=== PATIENT | female | born 1950 | race African-American/Black ===

== ENCOUNTER 2018-05-27 06:07 | Day surgery (SDC) | payer OTHER ==
[2018-05-26 16:17] VITALS: BMI 32.8
[2018-05-27] MEDS ORDERED: ACETAMINOPHEN 325 MG TABLET (FP) PO PRN (06:31)
[2018-05-27] MEDS ORDERED: TROPICAMIDE 1% OPHTH SOLN 15 ML BOTTLE ONE (06:32)
[2018-05-27 06:39] VITALS: TEMP 97.5
[2018-05-27] MEDS: TROPICAMIDE 1% OPHTH SOLN 15 ML BOTTLE OP SCH ×3 (06:50→07:02)
[2018-05-27] MEDS: PHENYLEPHRINE 2.5% OPHTH SOLN 15 ML BOTTLE OP SCH ×3 (06:50→07:02)
[2018-05-27] MEDS: CYCLOPENTOLATE HCL 1% OPHTH SOLN 2 ML BOTTLE OP SCH ×3 (06:50→07:02)
[2018-05-27] MEDS: OFLOXACIN 0.3% OPHTHALMIC SOLUTION 5 ML BOTTLE OP SCH ×3 (06:50→07:02)
[2018-05-27] MEDS: KETOROLAC TROMETHAMINE 0.5% EYE DROP 1 DROP DROPS OP SCH ×2 (06:55→07:02)
[2018-05-27] MEDS ORDERED: CHONDROITIN SU A/HYALUR SOD 1 KIT ONE (07:09)
[2018-05-27] MEDS ORDERED: VANCOMYCIN 500 MG VIAL (RESTRICTED TO ID ONLY) ONE (07:17)
[2018-05-27] MEDS ORDERED: EPINEPHrine/PF 1 MG/1 ML (1:1,000) AMPULE ONE (07:17)
[2018-05-27] MEDS ORDERED: LIDOCAINE HCL/PF 1% SDV 5ML VIAL ONE (07:17)
[2018-05-27] MEDS ORDERED: WATER FOR INJ,STERILE 10 ML ONE (07:18)
[2018-05-27] MEDS ORDERED: POVIDONE-IODINE 5% OPHTHALMIC PREP 30 ML SOLUTION ONE (07:18)
[2018-05-27] MEDS ORDERED: TRYPAN BLUE 0.5 ML DISP.SYRIN ONE (07:18)
[2018-05-27] MEDS ORDERED: TETRACAINE 0.5% OPHTH SOLN 2 ML BOTTLE ONE (07:18)
[2018-05-27] MEDS ORDERED: MIDAZOLAM HCL 2 MG/2 ML SINGLE DOSE VIAL ONE (07:19)
[2018-05-27] MEDS ORDERED: SUCCINYLCHOLINE CHLORIDE 200 MG/10 ML VIAL ONE (07:19)
[2018-05-27] MEDS ORDERED: TETRACAINE 0.5% OPHTH SOLN 2 ML BOTTLE OD ONE (08:10)
[2018-05-27] MEDS ORDERED: POVIDONE-IODINE 5% OPHTHALMIC PREP 30 ML SOLUTION OD ONE (08:12)
[2018-05-27] MEDS ORDERED: CHONDROITIN SU A/HYALUR SOD 1 KIT IO ONE (08:22)
[2018-05-27] MEDS ORDERED: LIDOCAINE HCL 1% PRESERVATIVE FREE - 30ML VIAL IO ONE (08:22)
[2018-05-27] MEDS ORDERED: TRYPAN BLUE 0.5 ML DISP.SYRIN IO ONE (08:22)
[2018-05-27] MEDS ORDERED: BSS (NA/CA/MG/K) BALANCED SALT SOLUTION OPHTH SOLN 15 ML BOTTLE OD ONE (08:22)
[2018-05-27] MEDS ORDERED: EPINEPHrine/PF 1 MG/1 ML (1:1,000) AMPULE SQ ONE (08:29)
--- NOTE | 2018-05-27 08:53 | SPEC ---
DATE OF OPERATION: DATE OF DICTATION: 05/27/2018 PREOPERATIVE DIAGNOSIS: Cataract, right eye. POSTOPERATIVE DIAGNOSIS: Cataract, right eye. OPERATION: Phacoemulsification of right cataract, capsular staining with Trypan blue and intraocular lens implantation, lens used [id number], 22.0-diopter power, serial number [id number]. SURGEON: Glo Goodman MD ANESTHESIA: Topical, MAC. COMPLICATIONS: None. PROCEDURE: The patient was brought to the operating room and correctly identified along with the operative site as well as correct intraocular lens mendez. The patient was then prepped and draped in the usual sterile fashion including 5% Betadine solution in the conjunctival sac and an eyelid drape. An eyelid speculum was then placed into the operative eye. The eye was inspected and a poor red reflex was noted. A paracentesis port was created and 0.5 mL of intracameral preservative-free lidocaine 1% was given. Beneath an air bubble, the capsule was then stained with Trypan blue. The Trypan blue was then irrigated from the eye with balanced salt solution (BBS). Viscoelastic was injected to inflate the anterior chamber. A temporal clear corneal would was created. A continuous circular capsulorrhexis was performed. The nucleus was then hydrodissected and hydrodelineated was BSS and removed with phacoemulsification via [id number] approach. The remaining cortical material was irrigated and aspirated from the eye. Viscoelastic was injected in the anterior chamber to inflate the capsular bag. The intraocular lens was then injected into the bag. The viscoelastic was irrigated and aspirated from the eye. All wounds were tested and found to be watertight. No suture was placed. The intraocular lens was noted to be well centered and covered by the anterior capsular border. Topical vancomycin was given. The eye was patched and shielded. The patient was discharged from the operating room in stable condition. GLO GOODMAN M.D. [id number]
[2018-05-27 10:13] VITALS: BP 140/75; PULSE 67
== END 2018-05-27 10:15 | disposition home or self-care (01) ==
LOC: JASU-SURG 06:07
PROVIDERS: ATTEND Ophthalmology
PROC: 08RJ3JZ Replacement of Right Lens with Synthetic Substitute, Percutaneous Approach (ICD-10-PCS; principal; 2018-05-27 08:00)
DX: H26.9 Unspecified cataract (principal)

== ENCOUNTER 2023-03-12 09:00 | Emergency (ER) | payer OTHER ==
[2023-03-12 09:13] VITALS: BMI 33.3
[2023-03-12] MEDS ORDERED: ACETAMINOPHEN 1000 MG/100 ML BAG IVPB ONE (10:00)
[2023-03-12] MEDS ORDERED: ACETAMINOPHEN INJECTION 100 ML IVPB ONE (10:46)
[2023-03-12 10:47] LABS: BASO % 1.1 % (0-2.0); EOS % 1.3 % (0-4.5); HEMOGLOBIN 14.2 GM/dL (10.7-15.3); LYMPH % 48.1 % (8-40); MCH 30.3 pg (25.7-33.7); MCHC 32.9 g/dl (32.0-36.0); MEAN CELL VOLUME 92.1 fl (80-96); MONO % 7.1 % (3.8-10.2); NEUT % 42.4 % (42.8-82.8); PLATELET COUNT 214 10^3/uL (134-434); RBC 4.67 M/mm3 (3.60-5.2); RDW 14.7 % (11.6-15.6); WHITE BLOOD COUNT 6.7 K/mm3 (4.0-10.0)
[2023-03-12 10:55] LABS: INR 1.14 (0.83-1.09); PROTHROMBIN TIME (PATIENT) 13.2 SEC (9.7-13.0)
[2023-03-12 10:58] LABS: ACTIVATED PTT 27.3 SECONDS (25.2-36.5)
[2023-03-12 11:07] LABS: POTASSIUM 3.5 mmol/L (3.5-5.1)
[2023-03-12 11:09] LABS: CALCIUM 8.9 mg/dL (8.5-10.1)
[2023-03-12 11:10] LABS: ALBUMIN 3.2 g/dl (3.4-5.0)
[2023-03-12 11:11] LABS: BLOOD UREA NITROGEN 19.6 mg/dL (7-18)
[2023-03-12 11:13] LABS: CREATININE 0.9 mg/dL (0.55-1.3)
[2023-03-12 11:15] LABS: TOT PROT 6.8 g/dl (6.4-8.2)
[2023-03-12 11:16] LABS: BILIRUBIN,TOTAL 0.4 mg/dL (0.2-1)
[2023-03-12 14:16] VITALS: BP 123/69; PULSE 63; RESP 20; TEMP 97.7
== END 2023-03-12 14:28 | disposition home or self-care (01) ==
LOC: JER 09:00
PROC: 3E033NZ Introduction of Analgesics, Hypnotics, Sedatives into Peripheral Vein, Percutaneous Approach (ICD-10-PCS; principal; 2023-03-12)
DX: M54.2 Cervicalgia (principal); M79.602 Pain in left arm; R29.898 Other symptoms and signs involving the musculoskeletal system
CPT/HCPCS: 36415; 70450-TC; 70551-TC; 71046-TC-FY; 72125-TC; 80053; 80061; 82550; 83036; 84484; 85025; 85610; 85730; 86850; 86900; 86901; 93005; 93010; 99285-25

== ENCOUNTER 2023-04-11 21:46 | Inpatient (IN) | payer OTHER ==
[2023-04-11] MEDS ORDERED: SODIUM CHLORIDE 1,000 ML IV STA (22:25)
[2023-04-11 22:40] LABS: VENOUS O2 SATURATION 64.6 % (70-80); VENOUS PCO2 47.7 mmHg (38-52); VENOUS PH 7.424 (7.310-7.410)
[2023-04-11 22:41] LABS: BASO % 0.6 % (0-2.0); EOS % 0.6 % (0-4.5); HEMATOCRIT 49.8 % (32.4-45.2); HEMOGLOBIN 16.5 GM/dL (10.7-15.3); LYMPH % 29.5 % (8-40); MCH 30.4 pg (25.7-33.7); MCHC 33.2 g/dl (32.0-36.0); MEAN CELL VOLUME 91.4 fl (80-96); MEAN PLT VOLUME 10.3 fl (7.5-11.1); MONO % 6.3 % (3.8-10.2); PLATELET COUNT 250 10^3/uL (134-434); RBC 5.44 M/mm3 (3.60-5.2); RDW 14.3 % (11.6-15.6)
[2023-04-11] MEDS ORDERED: SODIUM CHLORIDE 500 ML IV STA (23:45)
[2023-04-12 00:01] LABS: CALCIUM 9.7 mg/dL (8.5-10.1)
[2023-04-12 00:02] LABS: ALBUMIN 3.5 g/dl (3.4-5.0); CO2 25 mmol/L (21-32)
[2023-04-12 00:04] LABS: CREATININE 1.5 mg/dL (0.55-1.3)
[2023-04-12 00:05] LABS: ANION GAP 12 mmol/L (4-13); CHLORIDE 95 mmol/L (98-107); POTASSIUM 3.9 mmol/L (3.5-5.1); SODIUM 133 mmol/L (136-145)
[2023-04-12 00:06] LABS: BILIRUBIN,TOTAL 0.5 mg/dL (0.2-1); TOT PROT 7.4 g/dl (6.4-8.2)
[2023-04-12 00:07] LABS: ALK PHOS 148 U/L (45-117)
[2023-04-12] MEDS ORDERED: INSULIN REGULAR HUMAN 100 UNITS/ML *VIAL IVPUSH ONE (00:08)
[2023-04-12 00:09] LABS: SGPT/ALT 38 U/L (13-61)
[2023-04-12 00:14] LABS: GLUCOSE,RANDOM 810 mg/dL (74-106)
[2023-04-12 00:19] LABS: SGOT/AST 18 U/L (15-37)
[2023-04-12 01:14] LABS: EPI CELLS 6 /uL (0-25.1); HYALINE CASTS 0 /uL (0-3.1); URINE APPEARANCE CLOUDY; URINE BACTERIA >9,000 /uL (0-1359); URINE BILIRUBIN NEGATIVE (NEGATIVE); URINE COLOR YELLOW; URINE GLUCOSE (UA) 3+ (NEGATIVE); URINE KETONE TRACE (NEGATIVE); URINE LEUK ESTERASE 1+ (NEGATIVE); URINE NITRITE NEGATIVE (NEGATIVE); URINE PROTEIN NEGATIVE (NEGATIVE); URINE RBC 62 /uL (0-23.9); URINE UROBILINOGEN 0.2 mg/dL (0.2-1.0); URINE WBC 1304 /uL (0-25.8)
[2023-04-12] MEDS ORDERED: INSULIN (LEVEMIR) 100 UNITS/ML UNITS SQ SCH (08:30)
[2023-04-12 08:37] LABS: HEMATOCRIT 43.8 % (32.4-45.2); HEMOGLOBIN 14.6 GM/dL (10.7-15.3); MCH 30.2 pg (25.7-33.7); MCHC 33.2 g/dl (32.0-36.0); MEAN PLT VOLUME 10.1 fl (7.5-11.1); PLATELET COUNT 214 10^3/uL (134-434); RBC 4.81 M/mm3 (3.60-5.2); RDW 14.1 % (11.6-15.6)
[2023-04-12] MEDS: INSULIN ASPART SLIDING SCALE (NOVOLOG) 1 VIAL SQ SCH ×4 (08:45→21:42)
[2023-04-12] MEDS ORDERED: INSULIN (LEVEMIR) 100 UNITS/ML UNITS SQ ONE (08:54)
[2023-04-12 08:57] LABS: POTASSIUM 3.6 mmol/L (3.5-5.1)
[2023-04-12 08:59] LABS: BLOOD UREA NITROGEN 12.2 mg/dL (7-18); CALCIUM 8.9 mg/dL (8.5-10.1)
[2023-04-12 09:00] LABS: MAGNESIUM 2.6 mg/dL (1.8-2.4)
[2023-04-12] MEDS ORDERED: amLODIPine BESYLATE 10 MG TABLET (FP) ONE (09:53)
[2023-04-12] MEDS ORDERED: ENOXAPARIN NA (PORCINE) 40 MG/0.4 ML DISP.SYRIN SQ ONE (09:53)
[2023-04-12] MEDS ORDERED: amLODIPine BESYLATE 10 MG TABLET (FP) PO SCH (10:00)
[2023-04-12] MEDS: ENOXAPARIN NA (PORCINE) 40 MG/0.4 ML DISP.SYRIN SQ SCH (10:03)
[2023-04-12] MEDS: CEFTRIAXONE 1 GM in DEXTROSE 5%-WATER - 50 ML IVPB SCH (12:56)
[2023-04-12 19:31] VITALS: BMI 28.4
[2023-04-12] MEDS: ATORVASTATIN CA 40 MG TABLET (FP) PO SCH (21:40)
[2023-04-12] MEDS: INSULIN (LEVEMIR) 100 UNITS/ML UNITS SQ SCH (21:40)
[2023-04-13 05:12] LABS: EPI CELLS 12 /uL (0-25.1); HYALINE CASTS 0 /uL (0-3.1); PH,URINE 5.5 (5.0-8.0); URINE APPEARANCE CLOUDY; URINE BACTERIA 26 /uL (0-1359); URINE BILIRUBIN NEGATIVE (NEGATIVE); URINE COLOR YELLOW; URINE GLUCOSE (UA) 3+ (NEGATIVE); URINE KETONE TRACE (NEGATIVE); URINE LEUK ESTERASE 1+ (NEGATIVE); URINE NITRITE NEGATIVE (NEGATIVE); URINE PROTEIN 1+ (NEGATIVE); URINE RBC 64 /uL (0-23.9); URINE UROBILINOGEN 0.2 mg/dL (0.2-1.0); URINE WBC 3185 /uL (0-25.8)
[2023-04-13] MEDS ORDERED: INSULIN (NOVOLOG) ASPART 100 UNITS/ML 10ML VIAL ONE ×4 (06:33→21:35)
[2023-04-13] MEDS: INSULIN (LEVEMIR) 100 UNITS/ML UNITS SQ SCH ×2 (06:48→21:37)
[2023-04-13] MEDS: INSULIN ASPART SLIDING SCALE (NOVOLOG) 1 VIAL SQ SCH ×4 (06:48→21:38)
[2023-04-13 09:30] LABS: BASO % 0.4 % (0-2.0); EOS % 1.1 % (0-4.5); HEMATOCRIT 42.4 % (32.4-45.2); HEMOGLOBIN 14.1 GM/dL (10.7-15.3); MCH 30.7 pg (25.7-33.7); MCHC 33.3 g/dl (32.0-36.0); MEAN CELL VOLUME 92.2 fl (80-96); MEAN PLT VOLUME 10.2 fl (7.5-11.1); MONO % 7.3 % (3.8-10.2); NEUT % 43.2 % (42.8-82.8); PLATELET COUNT 205 10^3/uL (134-434); RDW 14.2 % (11.6-15.6); WHITE BLOOD COUNT 5.8 K/mm3 (4.0-10.0)
[2023-04-13 09:48] LABS: POTASSIUM 3.4 mmol/L (3.5-5.1)
[2023-04-13] MEDS: CEFTRIAXONE 1 GM in DEXTROSE 5%-WATER - 50 ML IVPB SCH (09:53)
[2023-04-13] MEDS: ENOXAPARIN NA (PORCINE) 40 MG/0.4 ML DISP.SYRIN SQ SCH (09:53)
[2023-04-13] MEDS: LISINOPRIL 5 MG TABLET PO SCH (09:54)
[2023-04-13] MEDS: amLODIPine BESYLATE 5 MG TABLET (FP) PO SCH (09:54)
[2023-04-13 09:56] LABS: BLOOD UREA NITROGEN 13.7 mg/dL (7-18)
[2023-04-13 09:57] LABS: CALCIUM 8.4 mg/dL (8.5-10.1); MAGNESIUM 2.3 mg/dL (1.8-2.4)
[2023-04-13 10:01] LABS: BILIRUBIN,TOTAL 0.4 mg/dL (0.2-1)
[2023-04-13 10:14] LABS: ALBUMIN 2.7 g/dl (3.4-5.0)
[2023-04-13] MEDS: APIXABAN 5 MG TABLET PO SCH (21:39)
[2023-04-13] MEDS: CEFUROXIME AXETIL 500 MG TABLET PO SCH (21:39)
[2023-04-13] MEDS: ATORVASTATIN CA 40 MG TABLET (FP) PO SCH (21:39)
[2023-04-14] MEDS ORDERED: INSULIN (NOVOLOG) ASPART 100 UNITS/ML 10ML VIAL ONE ×2 (06:27→12:00)
[2023-04-14] MEDS: INSULIN (LEVEMIR) 100 UNITS/ML UNITS SQ SCH (06:30)
[2023-04-14] MEDS: INSULIN ASPART SLIDING SCALE (NOVOLOG) 1 VIAL SQ SCH ×2 (06:32→12:10)
[2023-04-14 08:56] LABS: EOS % 0.9 % (0-4.5); HEMATOCRIT 40.6 % (32.4-45.2); HEMOGLOBIN 13.5 GM/dL (10.7-15.3); MCH 30.4 pg (25.7-33.7); MCHC 33.2 g/dl (32.0-36.0); MEAN CELL VOLUME 91.4 fl (80-96); MEAN PLT VOLUME 9.8 fl (7.5-11.1); MONO % 4.4 % (3.8-10.2); NEUT % 61.7 % (42.8-82.8); PLATELET COUNT 195 10^3/uL (134-434); RBC 4.45 M/mm3 (3.60-5.2); RDW 14.2 % (11.6-15.6); WHITE BLOOD COUNT 5.5 K/mm3 (4.0-10.0)
[2023-04-14 09:25] LABS: POTASSIUM 3.7 mmol/L (3.5-5.1)
[2023-04-14 09:28] LABS: ALBUMIN 2.8 g/dl (3.4-5.0); BLOOD UREA NITROGEN 20.6 mg/dL (7-18); CALCIUM 8.9 mg/dL (8.5-10.1); MAGNESIUM 2.1 mg/dL (1.8-2.4)
[2023-04-14 09:32] LABS: BILIRUBIN,TOTAL 0.4 mg/dL (0.2-1)
[2023-04-14 09:33] LABS: TOT PROT 5.9 g/dl (6.4-8.2)
[2023-04-14] MEDS: APIXABAN 5 MG TABLET PO SCH (09:45)
[2023-04-14] MEDS: amLODIPine BESYLATE 5 MG TABLET (FP) PO SCH (09:45)
[2023-04-14] MEDS: CEFUROXIME AXETIL 500 MG TABLET PO SCH (09:45)
[2023-04-14] MEDS: LISINOPRIL 5 MG TABLET PO SCH (09:45)
[2023-04-14 15:43] VITALS: BP 106/67; PULSE 76; RESP 20; TEMP 98.2
== END 2023-04-14 15:15 | disposition home or self-care (01) | DRG 638 ==
LOC: JER 21:46 → JERBED 04-12 00:09 → J8W 04-12 12:42
PROVIDERS: ADMIT Internal Medicine; ATTEND Nurse Practitioner Family
DX: E11.65 Type 2 diabetes mellitus with hyperglycemia (principal); N17.9 Acute kidney failure, unspecified; N39.0 Urinary tract infection, site not specified; J45.909 Unspecified asthma, uncomplicated; I10 Essential (primary) hypertension
CPT/HCPCS: 36415; 80048; 80053; 81003; 82010; 82803; 82962; 83036; 83735; 85025; 85027; 87086; 87186; 93005; 93010; 99285-25

== ENCOUNTER 2023-10-17 06:00 | Day surgery (SDC) | payer OTHER ==
[2023-10-15 10:48] VITALS: BMI 26.6
[2023-10-17 13:26] VITALS: RESP 18
[2023-10-17] MEDS ORDERED: ACETAMINOPHEN 500 MG TABLET (FP) PO PRN (14:35)
[2023-10-17] MEDS: DEXAMETHASONE SOD PHOSPHATE 10 MG/1 ML VIAL IVPUSH ONE (15:08)
[2023-10-17] MEDS: IOHEXOL 180 MG/1 ML ML IJ ONE (15:08)
[2023-10-17] MEDS: LIDOCAINE HCL 1% PRESERVATIVE FREE - 30ML VIAL IJ ONE (15:08)
[2023-10-17 17:31] VITALS: BP 140/74; PULSE 66; TEMP 97.8
== END 2023-10-17 15:50 | disposition home or self-care (01) ==
LOC: JASU-SURG 06:00
PROVIDERS: ATTEND Pain Medicine Pain Medicine
PROC: 3E0R3BZ Introduction of Anesthetic Agent into Spinal Canal, Percutaneous Approach (ICD-10-PCS; 2023-10-17)
PROC: 3E0R33Z Introduction of Anti-inflammatory into Spinal Canal, Percutaneous Approach (ICD-10-PCS; principal; 2023-10-17 14:30)
DX: M48.061 Spinal stenosis, lumbar region without neurogenic claudication (principal); M54.16 Radiculopathy, lumbar region
CPT/HCPCS: 76000-TC-FY; J1100

== ENCOUNTER 2023-12-19 03:57 | Day surgery (SDC) | payer OTHER ==
[2023-12-19] MEDS ORDERED: LIDOCAINE HCL/PF 1% SDV 5ML VIAL ONE (07:20)
[2023-12-19] MEDS ORDERED: LIDOCAINE HCL/PF 2% SDV 5ML VIAL ONE (07:20)
[2023-12-19 12:21] VITALS: BMI 26.6
[2023-12-19 12:22] VITALS: TEMP 97.7
[2023-12-19] MEDS ORDERED: MIDAZOLAM HCL 2 MG/2 ML SINGLE DOSE VIAL ONE (13:37)
[2023-12-19] MEDS ORDERED: ONDANSETRON 4 MG/2 ML VIAL ONE (14:49)
[2023-12-19 14:58] VITALS: PULSE 64; RESP 14
[2023-12-19] MEDS ORDERED: ACETAMINOPHEN 500 MG TABLET (FP) ONE (16:19)
[2023-12-19] MEDS: ACETAMINOPHEN 500 MG TABLET (FP) PO PRN (16:23)
[2023-12-19 17:18] VITALS: BP 120/74
== END 2023-12-19 17:00 | disposition home or self-care (01) ==
LOC: JASU-SURG 03:57
PROVIDERS: ATTEND Pain Medicine Pain Medicine
PROC: 01NB3ZZ Release Lumbar Nerve, Percutaneous Approach (ICD-10-PCS; principal; 2023-12-19 13:46)
DX: M48.062 Spinal stenosis, lumbar region with neurogenic claudication (principal)
CPT/HCPCS: 0275T; C1889; 76000-TC-FY; 82962; 88304-TC

== ENCOUNTER 2024-01-29 05:08 | Day surgery (SDC) | payer OTHER ==
[2024-01-27 11:58] VITALS: BMI 26.6
[2024-01-29] MEDS ORDERED: TRIAMCINOLONE ACET 40MG/1ML VIAL ONE (07:30)
[2024-01-29] MEDS ORDERED: BUPIVACAINE HCL/PF 0.5% (5MG/ML) 10 ML VIAL ONE (07:30)
[2024-01-29] MEDS ORDERED: LIDOCAINE HCL/PF 1% SDV 5ML VIAL ONE (07:30)
[2024-01-29] MEDS ORDERED: BUPIVACAINE HCL/PF 0.25% (2.5MG/ML) 10 ML VIAL ONE (07:30)
[2024-01-29 13:48] VITALS: RESP 20
[2024-01-29] MEDS: IOHEXOL 180 MG/1 ML ML IJ ONE (14:55)
[2024-01-29] MEDS: LIDOCAINE 1% P/F 10 MG/ML VIAL INF ONE (14:56)
[2024-01-29] MEDS: BUPIVACAINE HCL/PF 0.5% (5 MG/ML) 30 ML VIAL IJ ONE (14:57)
[2024-01-29] MEDS: TRIAMCINOLONE ACET 40MG/1ML VIAL IJ ONE (14:57)
[2024-01-29 16:06] VITALS: BP 120/76; PULSE 60; TEMP 97
== END 2024-01-29 15:50 | disposition home or self-care (01) ==
LOC: JASU-SURG 05:08
PROVIDERS: ATTEND Pain Medicine Pain Medicine
PROC: 3E0U3GC Introduction of Other Therapeutic Substance into Joints, Percutaneous Approach (ICD-10-PCS; principal; 2024-01-29 14:45)
DX: M16.11 Unilateral primary osteoarthritis, right hip (principal)
CPT/HCPCS: 76000-TC-FY